=== PATIENT | female | born 1950 | race Two or more races ===

== ENCOUNTER → 2016-10-15 | Outpatient (REF) | payer MEDICARE, OTHER ==
[~2016-10-15] MED LIST: /ESOM40CA PO; /HCTZ25TA PO; B12-1CHW PO; BIOT50004 PO; CALC600T57 PO; CAPT25TA3 PO; FURO40TA2 PO; HYDR25TA6 PO; MULT1TAB9 PO; OMEP20CA3 PO; POTA10CA PO; POTA20TA PO; POTASSIUM CL ER PO; PRAVASTATIN PO; PREMARIN PO; REQUIP XL PO; ROPI4TAB21 PO; SPIR25TA2 PO; TOPA25TA10 PO; TRAM50TA2 PO; ULTR50TA PO
[2016-10-15 13:48] LABS: CALCIUM OXALATE CRYSTALS MODERATE
== END ==
LOC: M SMT 12:53
PROVIDERS: ATTEND Nurse Practitioner Family
DX: N39.0 Urinary tract infection, site not specified (principal)
CPT/HCPCS: 51798; 81001; 87088; 87186; G0463

== ENCOUNTER → 2016-10-22 | Outpatient (CLI) | payer MEDICARE, OTHER ==
--- NOTE | 2016-10-22 10:25 | REP ---
Clinical: Recurrent urinary tract infection. Findings: Lung bases are clear. Visualized heart and pericardium normal. Liver, spleen, pancreas, bilateral adrenal glands and kidneys are normal. Specifically, there is no perinephric stranding, hydroureteronephrosis or nephrolithiasis. The patient is status post cholecystectomy and gastric bypass surgery. The enteric system is without obstruction or acute inflammatory process. Colonic and sigmoid diverticulosis noted without obvious acute diverticulitis. Pelvis demonstrates normal bladder and evidence for prior hysterectomy. Multiple phleboliths noted in the pelvis. No pelvic fluid or ascites. No obvious adenopathy. Atherosclerotic changes of the aorta and vasculature without aneurysm. Skeletal structures demonstrate degenerative changes and evidence for prior laminectomy and posterior fixation at the L1-L4. Impression: 1. Essentially normal appearance to the urinary tract system by noncontrast evaluation. 2. No free fluid and no obvious acute intra-abdominal or pelvic pathology. 3. Chronic changes include prior cholecystectomy, gastric bypass, hysterectomy, lumbar laminectomy and posterior fusion. Signed by Lalito Meeks MD 10/22/2016 10:16 A
== END ==
LOC: M RAD 09:08
PROVIDERS: ATTEND Nurse Practitioner Family
DX: N39.0 Urinary tract infection, site not specified (principal); Z98.84 Bariatric surgery status; Z98.1 Arthrodesis status

== ENCOUNTER → 2017-02-01 | Outpatient (REF) | payer MEDICARE, OTHER ==
[~2017-02-01] MED LIST changes: +TOPA1TAB PO; -TOPA25TA10 PO
== END ==
LOC: M SMT 13:30
PROVIDERS: ATTEND Nurse Practitioner Women's Health
DX: N39.0 Urinary tract infection, site not specified (principal)
CPT/HCPCS: 81001; 87086; G0463

== ENCOUNTER → 2017-05-25 | Outpatient (REF) | payer MEDICARE, OTHER | LOC: M LAB REF 17:01 | PROVIDERS: ATTEND Urology | DX: N39.0 Urinary tract infection, site not specified (principal) | CPT/HCPCS: 81001; 87086; G0463 ==

== ENCOUNTER 2018-07-27 08:13 | Day surgery (SDC) | payer MEDICARE, OTHER ==
[~2018-07-27] VITALS: Ht 162.6 cm; Wt 73.5 kg
[~2018-07-27 08:13] MED LIST changes: +KLOR10TA76 PO; +LIDOCAINE 2% INJ 100 MG/5 ML SDV (FOR ANES.) As Ordered ONE; +LR 1,000 ML IV ONE; +MAGN500C PO; +MIDAZOLAM INJ 2 MG/2 ML VIAL (J2250) As Ordered ONE; -POTA10CA PO; +PROPOFOL 200 MG/20 ML VIAL As Ordered ONE; +SPIR50TA4 PO; +fentaNYL 250 MCG/5 ML INJECTION (J3010) As Ordered ONE
[2018-07-27] MEDS ORDERED: PHENAZOPYRIDINE 100 MG TAB PO ONE (08:45)
[2018-07-27] MEDS ORDERED: VASOPRESSIN INJ 20 UNITS/ML VIAL As Ordered ONE (09:56)
[2018-07-27] MEDS ORDERED: ROCURONIUM BROMIDE 50 MG/5 ML VIAL As Ordered ONE (10:14)
[2018-07-27] MEDS ORDERED: ePHEDrine SULFATE 25 MG/5 ML(5MG/ML) SYRINGE As Ordered ONE (10:33)
[2018-07-27] MEDS ORDERED: dexameTHASONE 4 MG/ML 1ML VIAL (J1100) As Ordered ONE (10:47)
[2018-07-27] MEDS ORDERED: GLYCOPYRROLATE INJ 0.2 MG/ML 2 ML VIAL As Ordered ONE (10:47)
[2018-07-27] MEDS ORDERED: ONDANSETRON 4MG/2ML VIAL (J2405) As Ordered ONE (10:47)
[2018-07-27] MEDS ORDERED: NEOSTIGMINE 10 MG/10 ML VIAL (J2710) As Ordered ONE (10:47)
[2018-07-27] MEDS ORDERED: KETOROLAC 60 MG/2 ML VIAL (J1885) As Ordered ONE (10:47)
[2018-07-27] MEDS ORDERED: METOCLOPRAMIDE INJ 10MG/2ML VIAL (J2765) As Ordered ONE (10:47)
[2018-07-27] MEDS ORDERED: fentaNYL 100 MCG/2 ML INJECTION (J3010) As Ordered ONE (12:37)
[2018-07-27] MEDS ORDERED: MORPHINE 10 MG/ML 1ML VIAL (J2270) As Ordered ONE (13:06)
[2018-07-27] MEDS: MORPHINE 10 MG/ML 1ML VIAL (J2270) IV PRN ×5 (13:10→13:58)
[2018-07-27] MEDS ORDERED: PERCOCET 5MG/325MG TAB As Ordered ONE (13:23)
[2018-07-27] MEDS ORDERED: fentaNYL 100 MCG/2 ML INJECTION (J3010) IV PRN (13:45)
[2018-07-27] MEDS ORDERED: PERCOCET 5MG/325MG TAB PO PRN (13:45)
[2018-07-27] MEDS ORDERED: ONDANSETRON 4MG/2ML VIAL (J2405) IV PRN (13:45)
[2018-07-27] MEDS ORDERED: LR 1,000 ML IV SCH (13:45)
--- NOTE | 2018-07-27 16:26 | RO ---
DATE OF PROCEDURE: 07/27/2018 PREOPERATIVE DIAGNOSES: Symptomatic prolapse including cystocele, rectocele and left paravaginal defect as well as failed conservative methods and stress urinary incontinence with usual hypermobility. POSTOPERATIVE DIAGNOSES: Symptomatic prolapse including cystocele, rectocele and left paravaginal defect as well as failed conservative methods and stress urinary incontinence with usual hypermobility. PROCEDURE: Sacrospinous suspension using Anchorsure anterior and posterior repair with perineorraphy and reconnection of the rectovaginal septum to the perineal body. She also had a left perivaginal defect repair and a Solyx midurethral sling placement with cystourethroscopy. SURGEON: Denia Corcoran MD WINDOWS SECURITY ANALYST: Stacy Sims ANESTHESIA: General endotracheal anesthesia. BRIEF DESCRIPTION OF PROCEDURE AND FINDINGS: Olimpia was brought to the operating room where sufficient anesthesia was induced, and she was prepped, draped, and positioned in the usual sterile fashion. As expected, she had prolapse of the vaginal vault. We were able to put Allis clamps at four separate locations and inject with vasopressin, and then remove a aguilar-shaped portion of vaginal epithelium over these tissues. We did place the tissues using Hyatt clamps up to the sacral spinous ligament to evaluate our placement and there was more redundancy anteriorly than posteriorly, so of course that is how we shaped that aguilar-shaped tissue. We did empty the bladder at the beginning of the case. The patient had taken preoperative Pyridium as is evident by the operative photos. She also had a perivaginal defect which we could not repair with the sacral spinous or the midline anterior and posterior repair that she needed. We did do an anterior cystocele repair after removing that aguilar-shaped portion of tissue. We used #2-0 Vicryl in a pursestring stitch and then [id number] to resupport anteriorly that anterior rectocele. Then, dissecting posteriorly at the apex, we worked towards the right sacral spinous ligament and having dissected it free, we then placed two Anchorsure anchors into the ligament. Each of these carried two #2-0 PDS and these four sutures were then used to make four-point suspension of the vaginal vault for sacral spinous suspension of apex using a Isbell reusable needle to bring those sutures through and through the vaginal epithelium and having brought those sutures through, testing, of course placement repeatedly with Allis clamps to make sure that we had as good a placement as possible and had not over-corrected. We then closed the vaginal vault itself where we had incised at the apex, closing anterior to posterior to foreshorten the vaginal tissues rather than closing [id number] and then being careful as well to avoid pinching or crimping the PDS. We then brought down the PDS, each with one throw, keeping those tight on hemostats and then cystourethroscopy was done. We confirmed that we had actually bulged up anteriorly the cystocele and that we had not kinked or obstructed the ureters. We had normal jets dye colored urine laterally and there was no evidence of suture within the bladder. We then re-emptied the bladder and completed the throws on the PDS and trimmed those off. We still had a left paravaginal defect and in addition we had a posterior defect. The cystocele on the anterior repair as I already described were completed. She did have a urethrocele. We planned on getting that with the midurethral sling. So we went posteriorly and there was a separation of the perineal body and the rectovaginal septum as well as obvious midline and slightly off to the patient's right posterior defect, so we incised an inverted triangle of tissue from the perineal body, dissected the vaginal epithelium free from the rectovaginal septum posteriorly and then working [id number] did leave a later plication and having plicated the rectovaginal septum and levators, we then reconnected the rectovaginal septum to the perineal body and then did a perineorrhaphy as well using #2-0 and #0 Vicryl as is typical. We then removed some more redundant vaginal epithelium and closed the vaginal defect posteriorly and repaired the perineum. We then turned our attention anteriorly. There was still a left perivaginal defect so we made a separate incision for that dissection. Dissected out laterally. We had support and then used #2-0 Vicryl in this plication and then closed the wound there and thus repaired the lateral perivaginal defect as well as the cystocele defect, the apical defect and the rectocele, and separation of the rectovaginal septum and perineal body. Having completed those corrections, we only had the urethrocele to go and we emptied the bladder again, and then injected again with vasopressin anteriorly in the midline, approximately a centimeter cephalad from the ureteral meatus we made an incision about a centimeter and a half long in the anterior vaginal wall, maybe a little longer since we were correcting the urethrocele as well and then we dissected out laterally being very careful to avoid the sulcus, which at this point with the perivaginal defect had been recreated. So we were careful to work around that and I went ahead and placed the left side Solyx arm prior to the right because of working carefully around this repair, but we did get good placement with the Solyx and then cystoscopy confirmed lack of injury to the bladder, lack of mesh in the bladder or the urethra and confirmed continued jets or urine incidentally. We then closed the anterior vaginal wall defects, thus also correcting the cystocele and then placed a vaginal pack. Rectal exam at the end of the case also confirmed lack of rectal injury and good support. The procedure was then ended. ESTIMATED BLOOD LOSS: Maybe 30 mL. FLUIDS REPLACED: Crystalloid. COMPLICATIONS: None. CONDITION AND DISPOSITION: Olimpia tolerated the procedure well and was recovering in the recovery room in good condition.
[2018-07-27 17:15] VITALS: BP 111/55
== END 2018-07-27 18:15 | disposition home or self-care (01) ==
LOC: M SDC 08:13
PROVIDERS: ATTEND Obstetrics & Gynecology
DX: N81.89 Other female genital prolapse (principal); N39.3 Stress incontinence (female) (male); K21.9 Gastro-esophageal reflux disease without esophagitis; G25.81 Restless legs syndrome; G47.00 Insomnia, unspecified; Z88.2 Allergy status to sulfonamides; Z79.899 Other long term (current) drug therapy
CPT/HCPCS: 57260; 57282; 57288; 88302; C1713; C1771; J0690; J1100; J1885; J2250; J2270; J2405; J2710; J2765; J3010

== ENCOUNTER → 2018-08-16 | Outpatient (REF) | payer MEDICARE, OTHER ==
[~2018-08-16] MED LIST changes: -LIDOCAINE 2% INJ 100 MG/5 ML SDV (FOR ANES.) As Ordered ONE; -LR 1,000 ML IV ONE; -MIDAZOLAM INJ 2 MG/2 ML VIAL (J2250) As Ordered ONE; -PROPOFOL 200 MG/20 ML VIAL As Ordered ONE; -fentaNYL 250 MCG/5 ML INJECTION (J3010) As Ordered ONE
[2018-08-16 18:34] LABS: APPEARANCE, URINE TURBID (CLEAR); BACTERIA, URINE AUTO 2+ (NEGATIVE); BILIRUBIN, URINE AUTO NEGATIVE (NEGATIVE); BLOOD, URINE BLOOD 2+ (NEGATIVE); COLOR, URINE AMBER (YELLOW); GLUCOSE, URINE (UA) AUTO NEGATIVE (NEGATIVE); KETONE, URINE AUTO NEGATIVE (NEGATIVE); LEUKOCYTE ESTERASE, URINE AUTO 3+ (NEGATIVE); MUCUS, URINE SMALL (NEGATIVE); NITRITE, URINE AUTO NEGATIVE (NEGATIVE); PROTEIN, URINE AUTO 1+ mg/dL (NEGATIVE); RBC, URINE AUTO 114 /HPF (0-3); SPECIFIC GRAVITY URINE AUTO 1.018 (1.002-1.035); SQUAMOUS EPITHELIAL CELL UR AU 3 /HPF (0-6); UROBILINOGEN, URINE AUTO 0.2 mg/dL (0.0-2.0); WBC, URINE AUTO TNTC /HPF (0-3)
== END ==
LOC: M LAB REF 16:34
PROVIDERS: ATTEND Obstetrics & Gynecology
DX: R39.89 Other symptoms and signs involving the genitourinary system (principal)

== ENCOUNTER → 2018-10-20 | Outpatient (CLI) | payer MEDICARE, OTHER ==
--- NOTE | 2018-10-20 11:37 | REP ---
RIGHT FOOT SERIES: Four views. HISTORY: Pain. FINDINGS: Four views of the right foot demonstrate osteoarthritis at the first MTP and IP joints with spurring and some sclerosis. Overall mineralization pattern is normal. There are plantar and Achilles calcaneal spurs. There is ankle joint osteoarthritis and some midfoot spurring visible on the lateral film. IMPRESSION: Osteoarthritic changes. No acute bony abnormality. Electronically Signed by David Islas MD 10/20/2018 02:33 P
== END ==
LOC: M WUC 10:19
PROVIDERS: ATTEND Physician Assistant
DX: M19.071 Primary osteoarthritis, right ankle and foot (principal)

== ENCOUNTER 2019-06-28 11:31 | Day surgery (SDC) | payer MEDICARE, OTHER ==
[~2019-06-28] VITALS: Ht 162.6 cm; Wt 74.6 kg
[~2019-06-28 11:31] MED LIST changes: -/ESOM40CA PO; -/HCTZ25TA PO; +HYDR-3644 PO; +LIDOCAINE 1% MDV 20ML VIAL SQ PRN; +LR 1,000 ML IV ONE; +MIDAZOLAM INJ 2 MG/2 ML VIAL (J2250) As Ordered ONE; +NEXI1CAP3 PO; +OMEP-172 PO; -OMEP20CA3 PO; +ONDANSETRON 4MG/2ML VIAL (J2405) As Ordered ONE; +PHENAZOPYRIDINE 100 MG TAB PO ONE; +POTA1TAB14 PO; +PROPOFOL 200 MG/20 ML VIAL As Ordered ONE; +ROCURONIUM BROMIDE 50 MG/5 ML VIAL As Ordered ONE; +SM M250T PO; +[UNRECOGNIZED DRUG - CODE] TD; +ceFAZolin SOD 2 GM in IV 1 EA IV ONE; +dexameTHASONE 4 MG/ML 1ML VIAL (J1100) As Ordered ONE; +fentaNYL 100 MCG/2 ML INJECTION (J3010) As Ordered ONE
[2019-06-28] MEDS ORDERED: SCOPOLAMINE 1MG TRANSDERMAL PATCH As Ordered ONE (12:17)
[2019-06-28] MEDS ORDERED: FURO40TA2 PO (12:22)
[2019-06-28] MEDS ORDERED: SCOPOLAMINE 1MG TRANSDERMAL PATCH TOP ONE (12:30)
[2019-06-28] MEDS ORDERED: VASOPRESSIN INJ 20 UNITS/ML VIAL As Ordered ONE (12:45)
[2019-06-28] MEDS ORDERED: LIDOCAINE 2% INJ 100 MG/5 ML SDV (FOR ANES.) As Ordered ONE (13:11)
[2019-06-28] MEDS ORDERED: LACRILUBE (AKWA TEARS) OPHTH OINT 3.5 GM As Ordered ONE (13:17)
[2019-06-28] MEDS ORDERED: fentaNYL 100 MCG/2 ML INJECTION (J3010) As Ordered ONE ×3 (14:04→17:48)
[2019-06-28] MEDS ORDERED: ROCURONIUM BROMIDE 50 MG/5 ML VIAL As Ordered ONE ×2 (14:34→16:53)
[2019-06-28] MEDS ORDERED: ePHEDrine SULFATE 25 MG/5 ML(5MG/ML) SYRINGE As Ordered ONE (14:45)
[2019-06-28] MEDS ORDERED: ACETAMINOPHEN 1000MG 100ML IV BTL (OFIRMEV) (J0131 PER 10MG) As Ordered ONE (16:06)
[2019-06-28] MEDS ORDERED: SUGAMMADEX SODIUM 500 MG/5 ML VIAL (BRIDION) As Ordered ONE (17:13)
[2019-06-28] MEDS ORDERED: oxyCODONE 5MG TAB As Ordered ONE (17:59)
[2019-06-28] MEDS ORDERED: LR 1,000 ML IV SCH (18:15)
[2019-06-28] MEDS ORDERED: oxyCODONE 5MG TAB PO PRN (18:15)
[2019-06-28] MEDS ORDERED: METOCLOPRAMIDE INJ 10MG/2ML VIAL (J2765) IV PRN (18:15)
[2019-06-28] MEDS ORDERED: ONDANSETRON 4MG/2ML VIAL (J2405) IV PRN (18:15)
[2019-06-28] MEDS ORDERED: NORCO, ANEXSIA 5/325MG TABLET (HYDROcodone/ACETAMINOPHEN) PO PRN (18:15)
[2019-06-28] MEDS ORDERED: fentaNYL 100 MCG/2 ML INJECTION (J3010) IV PRN (18:15)
[2019-06-28] MEDS ORDERED: MEPERIDINE INJ 25 MG/ML VIAL (J2175) IV PRN (18:15)
[2019-06-28] MEDS ORDERED: rOPINIRole 2MG TAB PO SCH (21:00)
[2019-06-28 23:00] VITALS: BP 103/53
[2019-06-28 23:30] VITALS: BP 104/59
[2019-06-29] VITALS: BP 106/53
[2019-06-29 01:00] VITALS: BP 101/57
[2019-06-29 02:00] VITALS: BP 103/52
[2019-06-29 03:00] VITALS: BP 105/54
[2019-06-29 06:00] VITALS: BP 102/47
--- NOTE | 2019-06-29 07:43 | RO ---
DATE OF PROCEDURE: 06/28/2019 PREPROCEDURE DIAGNOSIS: Symptomatic prolapse. Failed picayune tissue repair. POSTPROCEDURE DIAGNOSIS: Symptomatic prolapse. Failed picayune tissue repair. PROCEDURE: Robotic sacral colpopexy and cystourethroscopy. SURGEON: Dr. Denia Corcoran. HOUSEPERSON: ABBY Reza ANESTHESIA: General endotracheal anesthesia. DESCRIPTION OF PROCEDURE: Olimpia was brought to the operating room where sufficient general endotracheal anesthesia was induced and she was prepped, draped and positioned in the usual sterile fashion with a Guallpa with the ability to backfill placed and attention turned to the abdomen where a transverse semilunar incision was made over the line of one of her previous scars (patient has multiple previous surgeries). Sharp and blunt dissection continued through the subcutaneous tissues to the level of the rectus fascia which was transversely incised, secured with a Vicryl retention suture. The peritoneum entered bluntly under direct visualization in an open laparoscopic technique and the Su cannula placed. CO2 insufflation was then begun. After adequate CO2 insufflation, the peritoneal cavity was visualized. There were normal shiny peritoneal surfaces throughout with no excrescence, ascites or exudate. There were adhesions as would be expected with the patient's previous surgical history. Some of these were taken down especially freeing up the sigmoid and bowel as much as possible. The patient also had impressively large vessels at the bifurcation but very evidence ureters. Despite a history of having gastric bypass, we were able to get access to the pelvis as documented in the photographic record. We were able to identify the sacral promontory and we just passed that so that we would not be on the disc space itself. We were able to elevate the peritoneum a tiny bit to the right of midline and then dissect through the presacral fat pad there to the sacral promontory. Then we tunneled the peritoneum down towards the pelvis coming out close to our expected are of dissection there. We were able place a Breisky into the vagina and then an EA sizer into the rectum. Posteriorly we were able to dissect all the way down between these so that we were as low as we wanted to go and as close to the rectum as we wanted to go. Anteriorly, we dissected down to what appeared to be were the bubble of the bladder was and then we used the Restorelle Y mesh with about 8 cm posteriorly and about 7 anteriorly peripherally sutured with GORE-RONALDO. But when we scoped her after placing the sutures and holding the tissue in position, we could see that there was a stitch that went through the bladder. So the anterior stitches were all taken out and the bladder dissection done again. We manipulated and backfilled the bladder multiple times. There was quite a bit of scarring there and given that the patient had a previous hysterectomy separate support procedures, etc., not surprising. Behind the bulb itself, there is a weak spot just at the bladder neck but it is so thin there between the vagina, I made a conscious decision not to incise down there once we had already gotten that close to the bladder and gotten into that fold. So what we did is after re-dissection and then placing the anterior, we re-stuck the anterior wall of the tissues because of course, then we had a longer reach there with that length of mesh and we did not want to have tension at the apex of the cuff. So we used the #2-0 GORE-RONALDO suture and took a couple of passes through the perivaginal tissues to sort of reef up these tissues to line them up in length with the mesh piece so that there would not be undue pressure at the vaginal cuff itself. We then pulled the mesh through the tunnel which I already created. We double-checked of course with the cysto and confirmed there was no longer any injury there or difficulty, no longer any suture in the vagina, etc., At this point, we had good support and we went ahead and, holding the mesh where we had positioned it for those tests, we placed two #2-0 GORE-RONALDO sutures in the longitudinal ligament just beyond the sacral promontory. I used a 30 degree down so I had good visualization and could avoid the vessels there and sewed those down first with flip knots to get good approximation and then multiple throws after that. Then we used #3-0 Vicryl to close the peritoneum over the spaces that had opened, first at the sacral promontory and then of course, in the pelvis. We took pictures after the closure covering up the mesh as well. Then the procedure was then ended with CO2 allowed to escape the abdomen. The instruments removed. The umbilical wound closed with the 0 Vicryl retention sutures at the fascial layer. Then all of the wounds closed at the skin layer with #3-0 Vicryl in subcuticular stitch. A dry sterile dressings then applied. ESTIMATED BLOOD LOSS: About 25 mL. FLUID REPLACEMENT: Crystalloid. COMPLICATIONS: None. CONDITION AND DISPOSITION: Olimpia tolerated the procedure well and was recovery in the recovery room in good condition.
[2019-06-29] MEDS ORDERED: OMEP10CASR PO (09:11)
[2019-06-29] MEDS ORDERED: POTA10CA32 PO (09:11)
[2019-06-29] MEDS ORDERED: ZOLP5TAB PO (09:11)
[2019-06-29] MEDS ORDERED: CLOB0.0548 TOP (09:11)
== END 2019-06-29 09:55 | disposition home or self-care (01) ==
LOC: M SDC 11:31 → M MS5PR 22:27 → M SDC 06-29 09:55
PROVIDERS: ATTEND Obstetrics & Gynecology
DX: N81.4 Uterovaginal prolapse, unspecified (principal); T86.891 Other transplanted tissue failure; Y76.2 Prosthetic and other implants, materials and accessory obstetric and gynecological devices associated with adverse incidents; N99.71 Accidental puncture and laceration of a genitourinary system organ or structure during a genitourinary system procedure; N18.2 Chronic kidney disease, stage 2 (mild); K21.9 Gastro-esophageal reflux disease without esophagitis; R60.0 Localized edema; L90.0 Lichen sclerosus et atrophicus; M54.9 Dorsalgia, unspecified; G47.419 Narcolepsy without cataplexy; G43.909 Migraine, unspecified, not intractable, without status migrainosus; G47.30 Sleep apnea, unspecified; R32 Unspecified urinary incontinence; R33.9 Retention of urine, unspecified; M19.90 Unspecified osteoarthritis, unspecified site; G25.81 Restless legs syndrome; G47.00 Insomnia, unspecified; Z87.440 Personal history of urinary (tract) infections; Z98.84 Bariatric surgery status; Z79.899 Other long term (current) drug therapy; Z88.1 Allergy status to other antibiotic agents; Z88.5 Allergy status to narcotic agent; Z88.2 Allergy status to sulfonamides; Z91.010 Allergy to peanuts
CPT/HCPCS: 57425; C1781; J0131; J0690; J1100; J2250; J2405; J3010

== ENCOUNTER 2019-09-21 09:15 | Outpatient (RCR) | payer MEDICARE, OTHER ==
[~2019-09-21 09:15] MED LIST changes: +CLOB0.0548 TOP; -LIDOCAINE 1% MDV 20ML VIAL SQ PRN; -LR 1,000 ML IV ONE; -MIDAZOLAM INJ 2 MG/2 ML VIAL (J2250) As Ordered ONE; -OMEP-172 PO; +OMEP10CASR PO; +OMEP1CAP73 PO; -ONDANSETRON 4MG/2ML VIAL (J2405) As Ordered ONE; -PHENAZOPYRIDINE 100 MG TAB PO ONE; +POTA10CA32 PO; -PROPOFOL 200 MG/20 ML VIAL As Ordered ONE; -ROCURONIUM BROMIDE 50 MG/5 ML VIAL As Ordered ONE; +ZOLP5TAB PO; -ceFAZolin SOD 2 GM in IV 1 EA IV ONE; -dexameTHASONE 4 MG/ML 1ML VIAL (J1100) As Ordered ONE; -fentaNYL 100 MCG/2 ML INJECTION (J3010) As Ordered ONE
== END 2019-09-22 ==
LOC: M PT 09:15
PROVIDERS: ATTEND Internal Medicine Nephrology
DX: I89.0 Lymphedema, not elsewhere classified (principal)

== ENCOUNTER 2020-03-13 08:37 | Day surgery (SDC) | payer MEDICARE, OTHER ==
[~2020-03-13] VITALS: Ht 165.1 cm; Wt 73.5 kg
[~2020-03-13 08:37] MED LIST changes: +BIOT5TAB3 PO; +CAPS0.022 TOP; +CAPS42.54 EX; +CYCL5TAB PO; +GNP250TA9 PO; +HYDR12.55 PO; +MACR100C43 PO
[2020-03-13] MEDS ORDERED: dexameTHASONE 4 MG/ML 1ML VIAL (J1100 PER 1MG) As Ordered ONE (09:09)
[2020-03-13] MEDS ORDERED: KETOROLAC 60MG 2ML VIAL As Ordered ONE (09:09)
[2020-03-13] MEDS ORDERED: SUGAMMADEX SODIUM 500 MG/5 ML VIAL (BRIDION) As Ordered ONE ×2 (09:09→12:36)
[2020-03-13] MEDS ORDERED: ROCURONIUM BROMIDE 50 MG/5 ML VIAL As Ordered ONE ×2 (09:09→11:37)
[2020-03-13] MEDS ORDERED: propofoL 200 MG/20 ML VIAL As Ordered ONE (09:09)
[2020-03-13] MEDS ORDERED: ACETAMINOPHEN 1000MG 100ML IV BTL (OFIRMEV) (J0131 PER 10MG) As Ordered ONE (09:09)
[2020-03-13] MEDS ORDERED: ONDANSETRON 4MG/2ML VIAL As Ordered ONE (09:09)
[2020-03-13] MEDS ORDERED: LIDOCAINE 2% 100MG/5ML SDV (FOR ANES.) As Ordered ONE (09:09)
[2020-03-13] MEDS ORDERED: fentaNYL 100 MCG/2 ML INJECTION (J3010) As Ordered ONE ×2 (09:10→11:23)
[2020-03-13] MEDS ORDERED: MIDAZOLAM INJ 2MG/2ML VIAL (J2250 PER 1MG) As Ordered ONE (09:10)
[2020-03-13] MEDS ORDERED: ceFAZolin 2 GM/D5W 50 ML IV BAG (J0690 PER 500MG) As Ordered ONE (09:11)
[2020-03-13] MEDS ORDERED: PHENAZOPYRIDINE 100 MG TAB PO ONE (09:30)
[2020-03-13] MEDS ORDERED: LR 1,000 ML IV SCH ×2 (09:30→13:30)
[2020-03-13] MEDS ORDERED: ceFAZolin SOD 2 GM in IV 1 EA IV ONE (09:30)
[2020-03-13] MEDS ORDERED: VASOPRESSIN INJ 20 UNITS/ML VIAL As Ordered ONE (09:50)
[2020-03-13] MEDS ORDERED: KETOROLAC 30 MG/ML 1ML VIAL As Ordered ONE (13:17)
[2020-03-13] MEDS ORDERED: oxyCODONE 5MG TAB PO PRN (13:30)
[2020-03-13] MEDS ORDERED: fentaNYL 100 MCG/2 ML INJECTION (J3010) IV PRN (13:30)
[2020-03-13] MEDS ORDERED: ONDANSETRON 4MG/2ML VIAL IV PRN (13:30)
[2020-03-13] MEDS ORDERED: KETOROLAC 30 MG/ML 1ML VIAL IV PRN (13:30)
[2020-03-13] MEDS ORDERED: NORCO, ANEXSIA 5/325MG TABLET (HYDROcodone/ACETAMINOPHEN) PO PRN (13:45)
[2020-03-13 16:21] LABS: HEMATOCRIT 32.8 % (36.0-47.0); HEMOGLOBIN 10.7 g/dl (12.0-15.5)
[2020-03-13 18:20] VITALS: BP 124/59
--- NOTE | 2020-04-15 09:15 | ECGEPIP ---
[facility] Test Date: 2020-03-13 Pat Name: SEVERIANO CANO Department: Room: - Gender: Female School Adjustment Counselor: LUKE : 1950 Requested By: Denia Gil Order Number: [id number] Reading MD: Bob Henrik Measurements Intervals Fred Rate: 49 P: 55 NJ: 196 QRS: 1 QRSD: 108 T: 53 QT: 430 QTc: 389 Interpretive Statements SINUS BRADYCARDIA WITH BORDERLINE 1ST DEGREE AV BLOCK INCOMPLETE RIGHT BUNDLE BRANCH BLOCK BORDERLINE ECG NO PRIOR TRACING SEE SCANNED DOWNTIME REPORT
--- NOTE | 2020-05-01 11:12 | RO ---
DATE OF OPERATION: 03/13/2020 PREOPERATIVE DIAGNOSIS AND INDICATION FOR SURGERY: Symptomatic prolapse. This is a patient who had a previous sacrospinous suspension that held briefly but failed in a fairly short interval. She subsequently underwent sacrocolpopexy with disruption early in her postoperative course and continued symptomatic with a large cystocele both midline and lateral and returned today for support surgery. PROCEDURE: Anterior-posterior repair, perineorrhaphy, sacrospinous suspension and cystourethroscopy. SURGEON: Denia Corcoran M.D. ARC AND GAS WELDER: None. ANESTHESIA: General endotracheal anesthesia. SPECIMENS: Only redundant vagina. REPLACED: Crystalloid. BRIEF DESCRIPTION OF PROCEDURE AND FINDINGS: Olimpia was brought to the operating room where sufficient general endotracheal anesthesia was induced. She was prepped and draped and positioned in the usual sterile fashion. At the apex posteriorly, you can still feel the patients previous Anchorsures and they are not holding snuggly anteriorly but there was some offer to support especially along the patients right side. The left side is not as well supported and she had a left lateral and anterior cystocele which were large and protuberant and disrupted the genital hiatus. The bladder was emptied and then vasopressin was injected anteriorly so that we could do a wide anterior dissection. We continued dissection up to an area where you would typically do a Carly plication anteriorly at the urethrovesical junction and I did some 2-0 [id number]-[id number] reduction anteriorly both with purse-strings and [id number]-go-[id number] stitches in order to reduce the cystocele from the field of dissection and improve access and also improve access to the lateral support tissues so that we could resupport those tissues and facilitate the dissection with better visualization. When we had reduced much of this, we were then able to reach the apex of the previous site of repair. I did not run into mesh at any point during this case. I did dissect to the sacrospinous ligament on the right side. We could feel the other two anchors but because I used two sutures in each anchor, there were only two anchors placed and so I was with some considerable effort able to place two more anchors. I did consider using only one but I really felt that she had enough need for support that I felt she needed a four point suspension. Even though most of this work was anterior, I did not want her to have a failure of support again and with patience, we were able to get good placement for two more anchors each with those held to #2-0 Maxon sutures and we were able to use further stitches with 0 Vicryl to purse-string the apex and to bring down that defect and plicate those tissues. Then we used the Isbell with untangled Maxon suture and brought it out full thickness through the paravesical tissues posterior to the apex of the paravaginal tissues and some of the paravesical tissues and out through the vaginal epithelium. Again, I had four points of support for this and was careful to come out on the patients left side where she still had that lateral defect that we could support those tissues. We also used Allises to support the tissues where we were coming so that we knew what support we would get with these and that we were not trying to over correct. Having brought out those sutures, we then did some further layering anteriorly to resupport the anterior defect, bring that in together and then tied down the sacrospinous support sutures and then scoped the patient. We were able to confirm that we had really reduced that cystocele and there no sutures in the bladder and she had normal jets of urine as readily visible with this patient who had taken pyridium preop. With confirmation of lack of bladder injury and good support to the bladder, we then finished off the rest of the throws of the Maxon sutures, sacrospinous support sutures and then trimmed the vaginal edge, closed that anterior and apical dissection in the epithelial layer with 3-0 Vicryl. Then we still a defect from left lateral extending posterior. I felt that there was a defect of the rectovaginal septum there and so we made a decision that we definitely needed a posterior repair as well. An inverted triangle of tissue was removed from the perineum, dissected along the previous line of dissection posteriorly and easing slightly towards the patients left side. I then actually did cephalad to caudad deep support of this tissue to plicate the rectovaginal septum there which I think offered better angle of support and connection of the tissues and having corrected that vertical defect or rather it is a horizontal defect but caused a lack of vertical support, having corrected that, we had much better support in the tissues. We then removed the redundant vaginal tissue and closed the vaginal tissue over this defect. We of course resupported a little bit in the midline as well but most of the support that was needed was lateral and came down and made sure to reconnect rectovaginal septum to perineal body and to resupport perineal body. We used 0 Vicryl at the perineal body and then 2-0 in the skin and any other connections. Having done all this, we had good support. We had a remaining urethrovesical angle that was appropriate and not absent nor exaggerated as it had been preoperatively. We had not disrupted a sling or mesh support nor run into that and we had good reduction of all the palpable defects we had had and of course, rectal exam confirmed lack of injury to the bowel so the procedure was then ended. ESTIMATED BLOOD LOSS: For the procedure, about 50 mL. FLUID REPLACEMENT: Crystalloid. COMPLICATIONS: None. DRAINS: I did place a Guallpa temporarily postop just to keep the bladder down off those supports but the plan will be to remove that before she leaves. CONDITION/DISPOSITION: Olimpia tolerated the procedure well and was recovering in the recovery room I good condition. CARLOS
== END 2020-03-13 18:25 | disposition home or self-care (01) ==
LOC: M SDC 08:37
PROVIDERS: ATTEND Obstetrics & Gynecology
DX: N81.9 Female genital prolapse, unspecified (principal); K21.9 Gastro-esophageal reflux disease without esophagitis; E78.5 Hyperlipidemia, unspecified; Z98.84 Bariatric surgery status; G47.30 Sleep apnea, unspecified; Z88.2 Allergy status to sulfonamides; Z88.5 Allergy status to narcotic agent; Z91.010 Allergy to peanuts; Z88.8 Allergy status to other drugs, medicaments and biological substances
CPT/HCPCS: 36415; 57260; 57282; 85014; 85018; 88302; 93005; C1713; J0131; J0690; J1100; J1885; J2250; J2405; J3010

== ENCOUNTER → 2020-03-26 | Outpatient (REF) | payer MEDICARE, OTHER ==
[2020-03-26 18:16] LABS: APPEARANCE, URINE HAZY (CLEAR); BACTERIA, URINE AUTO NEGATIVE (NEGATIVE); BILIRUBIN, URINE AUTO NEGATIVE (NEGATIVE); BLOOD, URINE BLOOD 2+ (NEGATIVE); COLOR, URINE STRAW (YELLOW); GLUCOSE, URINE (UA) AUTO NEGATIVE (NEGATIVE); KETONE, URINE AUTO NEGATIVE (NEGATIVE); LEUKOCYTE ESTERASE, URINE AUTO 3+ (NEGATIVE); NITRITE, URINE AUTO NEGATIVE (NEGATIVE); PROTEIN, URINE AUTO NEGATIVE (NEGATIVE); RBC, URINE AUTO 15 /HPF (0-3); SPECIFIC GRAVITY URINE AUTO 1.006 (1.002-1.035); SQUAMOUS EPITHELIAL CELL UR AU 0 /HPF (0-6); UROBILINOGEN, URINE AUTO 0.2 mg/dL (0.0-2.0); WBC, URINE AUTO 101 /HPF (0-3)
== END ==
LOC: M LAB REF 17:32
PROVIDERS: ATTEND Obstetrics & Gynecology
DX: R31.9 Hematuria, unspecified (principal); N39.0 Urinary tract infection, site not specified

== ENCOUNTER → 2020-04-29 | Outpatient (REF) | payer MEDICARE, OTHER ==
[2020-04-29 16:23] LABS: APPEARANCE, URINE CLEAR (CLEAR); BACTERIA, URINE AUTO 1+ (NEGATIVE); BILIRUBIN, URINE AUTO NEGATIVE (NEGATIVE); BLOOD, URINE BLOOD NEGATIVE (NEGATIVE); COLOR, URINE COLORLESS (YELLOW); GLUCOSE, URINE (UA) AUTO NEGATIVE (NEGATIVE); KETONE, URINE AUTO NEGATIVE (NEGATIVE); LEUKOCYTE ESTERASE, URINE AUTO TRACE (NEGATIVE); NITRITE, URINE AUTO NEGATIVE (NEGATIVE); PROTEIN, URINE AUTO NEGATIVE (NEGATIVE); RBC, URINE AUTO 0 /HPF (0-3); SPECIFIC GRAVITY URINE AUTO 1.004 (1.002-1.035); SQUAMOUS EPITHELIAL CELL UR AU 0 /HPF (0-6); UROBILINOGEN, URINE AUTO 0.2 mg/dL (0.0-2.0); WBC, URINE AUTO 1 /HPF (0-3)
== END ==
LOC: M LAB REF 16:04
PROVIDERS: ATTEND Obstetrics & Gynecology
DX: N81.11 Cystocele, midline (principal); N73.8 Other specified female pelvic inflammatory diseases

== ENCOUNTER → 2021-03-06 | Outpatient (REF) | payer MEDICARE, OTHER | LOC: M LAB REF 17:04 | PROVIDERS: ATTEND Internal Medicine Nephrology | DX: E83.42 Hypomagnesemia (principal) ==

== ENCOUNTER → 2021-03-18 | Outpatient (CLI) | payer MEDICARE, OTHER ==
--- NOTE | 2021-03-18 16:26 | REP ---
INDICATION: CONTUSION OF RIGHT KNEE, INITIAL ENCOUNTER COMPARISON: None TECHNIQUE: Four views. No sunrise view. FINDINGS: There is been a total knee prosthesis placed the femoral and tibial components of which appear well seated and well approximated. The alignment is near anatomical. There is no evidence of abnormal periprosthetic lucency. IMPRESSION: Status post TKR within normal limits. <Electronically signed by Stanley Walker > 03/18/21 [id number]
--- NOTE | 2021-03-18 16:27 | REP ---
INDICATION: CONTUSION OF RIGHT KNEE, INITIAL ENCOUNTER. COMPARISON: None. TECHNIQUE: AP and lateral views FINDINGS: No acute fracture or destructive osseous lesion. IMPRESSION: No acute abnormality. Please see the knee report. <Electronically signed by Stanley Walker > 03/18/21 [id number]
== END ==
LOC: M RAD 15:57
PROVIDERS: ATTEND Physician Assistant
DX: S80.01XA Contusion of right knee, initial encounter (principal); Z96.651 Presence of right artificial knee joint; X58.XXXA Exposure to other specified factors, initial encounter; Y92.9 Unspecified place or not applicable; Y93.9 Activity, unspecified; Y99.9 Unspecified external cause status

== ENCOUNTER → 2021-04-09 | Outpatient (REF) | payer MEDICARE, OTHER ==
[~2021-04-09] MED LIST changes: -KLOR10TA76 PO; +POTA-136 PO
[2021-04-09 13:47] LABS: APPEARANCE, URINE CLOUDY (CLEAR); BACTERIA, URINE AUTO 1+ (NEGATIVE); BILIRUBIN, URINE AUTO NEGATIVE (NEGATIVE); BLOOD, URINE BLOOD NEGATIVE (NEGATIVE); COLOR, URINE YELLOW (YELLOW); GLUCOSE, URINE (UA) AUTO NEGATIVE (NEGATIVE); KETONE, URINE AUTO TRACE mg/dL (NEGATIVE); LEUKOCYTE ESTERASE, URINE AUTO 3+ (NEGATIVE); MUCUS, URINE SMALL (NEGATIVE); NITRITE, URINE AUTO POSITIVE (NEGATIVE); PROTEIN, URINE AUTO NEGATIVE (NEGATIVE); RBC, URINE AUTO 6 /HPF (0-3); SPECIFIC GRAVITY URINE AUTO 1.021 (1.002-1.035); SQUAMOUS EPITHELIAL CELL UR AU 2 /HPF (0-6); UROBILINOGEN, URINE AUTO 0.2 mg/dL (0.0-2.0); WBC, URINE AUTO 78 /HPF (0-3)
== END ==
LOC: M SMT 12:50
PROVIDERS: ATTEND Urology
DX: N30.00 Acute cystitis without hematuria (principal)

== ENCOUNTER → 2021-05-15 | Outpatient (REF) | payer MEDICARE, OTHER ==
[2021-05-15 14:02] LABS: APPEARANCE, URINE CLEAR (CLEAR); BACTERIA, URINE AUTO NEGATIVE (NEGATIVE); BILIRUBIN, URINE AUTO NEGATIVE (NEGATIVE); BLOOD, URINE BLOOD NEGATIVE (NEGATIVE); COLOR, URINE COLORLESS (YELLOW); GLUCOSE, URINE (UA) AUTO NEGATIVE (NEGATIVE); KETONE, URINE AUTO NEGATIVE (NEGATIVE); LEUKOCYTE ESTERASE, URINE AUTO NEGATIVE (NEGATIVE); NITRITE, URINE AUTO NEGATIVE (NEGATIVE); PROTEIN, URINE AUTO NEGATIVE (NEGATIVE); RBC, URINE AUTO 0 /HPF (0-3); SPECIFIC GRAVITY URINE AUTO 1.004 (1.002-1.035); SQUAMOUS EPITHELIAL CELL UR AU 0 /HPF (0-6); UROBILINOGEN, URINE AUTO 0.2 mg/dL (0.0-2.0); WBC, URINE AUTO 0 /HPF (0-3)
== END ==
LOC: M SMT 13:21
PROVIDERS: ATTEND Urology
DX: N39.0 Urinary tract infection, site not specified (principal)

== ENCOUNTER → 2022-04-16 | Outpatient (CLI) | payer MEDICARE, OTHER | LOC: M WUC 15:31 | PROVIDERS: ATTEND Internal Medicine | DX: M25.40 Effusion, unspecified joint (principal); M19.031 Primary osteoarthritis, right wrist; M19.032 Primary osteoarthritis, left wrist ==

== ENCOUNTER → 2022-04-16 | Outpatient (REF) | payer MEDICARE, OTHER ==
[2022-04-16 17:43] LABS: BASO % 0.4 % (0.0-1.0); EOS # 0.1 10^3/uL (0.0-0.5); EOS % 2.7 % (0.0-3.0); HEMATOCRIT 41.4 % (36.0-47.0); LYMPH # 1.4 10^3/uL (1.5-5.0); LYMPH % 27.3 % (24.0-44.0); MEAN CORPUSCULAR HEMOGLOBIN 26.9 pg (27.0-33.0); MEAN CORPUSCULAR HGB CONC 31.4 g/dl (32.0-36.5); MEAN CORPUSCULAR VOLUME 85.5 fl (80.0-96.0); MONO # 0.5 10^3/uL (0.0-0.8); MONO % 8.8 % (2.0-8.0); NEUTROPHILS # 3.2 10^3/uL (1.5-8.5); NEUTROPHILS % 60.6 % (36.0-66.0); PLATELET COUNT, AUTOMATED 249 10^3/uL (150-450); RED BLOOD COUNT 4.84 10^6/uL (4.00-5.40); WHITE BLOOD COUNT 5.2 10^3/uL (4.0-10.0)
[2022-04-16 18:20] LABS: CREATININE,RANDOM URINE 14.5 MG/DL; TOTAL PROTEIN,RANDOM URINE < 5.0 MG/DL (0.0-12.0)
[2022-04-16 18:21] LABS: ERYTHROCYTE SEDIMENTATION RATE 18 mm/hr (0-30)
[2022-04-16 18:38] LABS: C REACTIVE PROTEIN QUANTITATIV < 0.30 MG/DL (0.00-0.30); COMPLEMENT C3 155 MG/DL (90-180); COMPLEMENT C4 36 MG/DL (10-40)
[2022-04-16 19:06] LABS: HEPATITIS B SURFACE ANTIBODY NEGATIVE (POSITIVE)
[2022-04-16 19:46] LABS: HEPATITIS C VIRUS ABY INDEX < 0.0 INDEX (<0.8)
[2022-04-16 20:46] LABS: APPEARANCE, URINE MANUAL CLEAR (CLEAR); COLOR, URINE MANUAL COLORLESS (YELLOW)
[2022-04-16 20:47] LABS: BILIRUBIN, URINE MANUAL NEGATIVE (NEGATIVE); BLOOD URINE MANUAL NEGATIVE (NEGATIVE); GLUCOSE, URINE (UA) MANUAL NEGATIVE (NEGATIVE); KETONE, URINE MANUAL NEGATIVE (NEGATIVE); LEUKOCYTE ESTERASE, URINE MAN NEGATIVE (NEGATIVE); NITRITE, URINE MANUAL NEGATIVE (NEGATIVE); PROTEIN, URINE MANUAL NEGATIVE (NEGATIVE); UROBILINOGEN, URINE MANUAL NORMAL (NORMAL)
[2022-04-17 04:57] LABS: HEPATITIS B SURFACE ANTIGEN NEGATIVE (NEGATIVE)
[2022-04-17 10:14] LABS: DRVV SCREEN 37.7 SEC
[2022-04-19 14:08] LABS: COMPLEMENT TOTAL (CH50) > 60 U/mL (>41); HEPATITIS B CORE ANTIBODY IGG Negative (Negative)
== END ==
LOC: M SFHCRHEU 14:25
PROVIDERS: ATTEND Internal Medicine
DX: R76.8 Other specified abnormal immunological findings in serum (principal); M25.40 Effusion, unspecified joint; Z11.59 Encounter for screening for other viral diseases

== ENCOUNTER → 2022-05-31 | Outpatient (REF) | payer MEDICARE, OTHER ==
[2022-05-31 19:45] LABS: THYROID STIMULATING HORMONE 2.31 uIU/ML (0.358-3.740)
[2022-06-02 02:55] LABS: FREE T3 2.8 PG/ML (2.2-4.0)
== END ==
LOC: M SFHCRHEU 11:35
PROVIDERS: ATTEND Internal Medicine
DX: R76.0 Raised antibody titer (principal); E07.9 Disorder of thyroid, unspecified

== ENCOUNTER → 2022-06-04 | Outpatient (REF) | payer MEDICARE, OTHER ==
[2022-06-04 14:17] LABS: APPEARANCE, URINE MANUAL CLEAR (CLEAR); COLOR, URINE MANUAL YELLOW (YELLOW)
[2022-06-04 14:18] LABS: BILIRUBIN, URINE MANUAL NEGATIVE (NEGATIVE); BLOOD URINE MANUAL NEGATIVE (NEGATIVE); GLUCOSE, URINE (UA) MANUAL NEGATIVE (NEGATIVE); KETONE, URINE MANUAL NEGATIVE (NEGATIVE); LEUKOCYTE ESTERASE, URINE MAN POSITIVE (NEGATIVE); NITRITE, URINE MANUAL NEGATIVE (NEGATIVE); PROTEIN, URINE MANUAL NEGATIVE (NEGATIVE); SPECIFIC GRAVITY,URINE MANUAL 1.015 (1.002-1.035); UROBILINOGEN, URINE MANUAL NORMAL (NORMAL)
[2022-06-04 14:25] LABS: BACTERIA, URINE SMALL AMOUNT; HYALINE CAST, URINE NONE SEEN /lpf (0-1); RBC, URINE NONE SEEN /hpf (0-3); SQUAMOUS EPITHELIAL CELL URINE SMALL AMOUNT /hpf (SMALL AMT)
[2022-06-04 14:26] LABS: AMORPHOUS SEDIMENT, URINE SMALL AMOUNT (NEGATIVE); MUCUS, URINE SMALL AMOUNT (NEGATIVE)
== END ==
LOC: M SMT 12:58
PROVIDERS: ATTEND Urology
DX: R30.0 Dysuria (principal)

== ENCOUNTER → 2022-12-13 | Outpatient (REF) | payer MEDICARE, OTHER ==
[~2022-12-13] MED LIST changes: +POTA-298 PO; -POTA10CA32 PO; +POTA10CA33 PO; -POTA1TAB14 PO
[2022-12-14 19:03] LABS: FREE T4 0.91 NG/DL (0.89-1.76); THYROID STIMULATING HORMONE 1.751 uIU/ML (0.55-4.78)
== END ==
LOC: M LAB REF 17:10
PROVIDERS: ATTEND Internal Medicine Nephrology
DX: R80.9 Proteinuria, unspecified (principal); E03.9 Hypothyroidism, unspecified

== ENCOUNTER 2023-06-03 07:35 | Day surgery (SDC) | payer MEDICARE, OTHER ==
[~2023-06-03] VITALS: Ht 162.6 cm; Wt 87.7 kg
[~2023-06-03 07:35] MED LIST changes: -BIOT50004 PO; +BIOT5CAP8 PO; +BUME1TAB3 PO; +GENTAMICIN SULF 80MG/2ML VIAL As Ordered ONE; +LIDOCAINE 2% MDV 20ML VIAL As Ordered ONE; -POTA10CA33 PO; +POTA10CA60 PO; +PREG100CA PO; +SLOW160T12 PO; +ceFAZolin SOD 2 GM in IV 1 EA IV ONE
[2023-06-03] MEDS ORDERED: LR 1,000 ML IV SCH (07:45)
[2023-06-03] MEDS ORDERED: ONDANSETRON 4MG 2ML VIAL As Ordered ONE (07:45)
[2023-06-03] MEDS ORDERED: LIDOCAINE 2% 100MG/5ML SDV (FOR ANES.) As Ordered ONE (07:45)
[2023-06-03] MEDS ORDERED: propofoL 200 MG/20 ML VIAL As Ordered ONE (07:45)
[2023-06-03] MEDS ORDERED: KETOROLAC 60MG 2ML VIAL As Ordered ONE (07:46)
[2023-06-03] MEDS ORDERED: MIDAZOLAM INJ 2MG/2ML VIAL As Ordered ONE (08:38)
[2023-06-03] MEDS ORDERED: fentaNYL 100 MCG/2 ML INJECTION As Ordered ONE (08:38)
[2023-06-03] MEDS ORDERED: ACETAMINOPHEN 1000MG 100ML IV BAG As Ordered ONE ×2 (09:37→11:18)
[2023-06-03] MEDS ORDERED: ePHEDrine SULFATE 25 MG/5 ML(5MG/ML) SYRINGE As Ordered ONE (10:03)
[2023-06-03 12:05] VITALS: BP 131/64; TEMP 98.2; O2SAT 97
== END 2023-06-03 12:14 | disposition home or self-care (01) ==
LOC: M SDC 07:35
PROVIDERS: ATTEND Podiatrist
DX: M20.41 Other hammer toe(s) (acquired), right foot (principal); G25.81 Restless legs syndrome; K21.9 Gastro-esophageal reflux disease without esophagitis; Z98.84 Bariatric surgery status; Z79.899 Other long term (current) drug therapy; Z88.8 Allergy status to other drugs, medicaments and biological substances; Z88.2 Allergy status to sulfonamides; Z88.5 Allergy status to narcotic agent; Z91.010 Allergy to peanuts; G43.909 Migraine, unspecified, not intractable, without status migrainosus; Z86.16 Personal history of COVID-19; G47.33 Obstructive sleep apnea (adult) (pediatric)
CPT/HCPCS: 28270; 28285; 73630; 88300; J0131; J0665; J0690; J1100; J1580; J1885; J2250; J2405; J3010

== ENCOUNTER → 2023-07-04 | Outpatient (CLI) | payer MEDICARE, OTHER ==
[~2023-07-04] MED LIST changes: -GENTAMICIN SULF 80MG/2ML VIAL As Ordered ONE; -LIDOCAINE 2% MDV 20ML VIAL As Ordered ONE; -ceFAZolin SOD 2 GM in IV 1 EA IV ONE
== END ==
LOC: M RAD 10:36
PROVIDERS: ATTEND Podiatrist
DX: I87.311 Chronic venous hypertension (idiopathic) with ulcer of right lower extremity (principal); Z98.890 Other specified postprocedural states; L97.919 Non-pressure chronic ulcer of unspecified part of right lower leg with unspecified severity

== ENCOUNTER → 2023-08-15 | Outpatient (REF) | payer MEDICARE, OTHER ==
[2023-08-15 16:53] LABS: TOTAL PROTEIN,RANDOM URINE 12.3 MG/DL (0.0-14.0)
[2023-08-15 16:58] LABS: BASO % 0.6 % (0.0-1.0); CREATININE,RANDOM URINE 136.5 MG/DL; EOS # 0.1 10^3/uL (0.0-0.5); EOS % 1.1 % (0.0-3.0); HEMATOCRIT 40.9 % (36.0-47.0); LYMPH # 1.3 10^3/uL (1.5-5.0); LYMPH % 24.2 % (24.0-44.0); MEAN CORPUSCULAR HEMOGLOBIN 32.6 pg (27.0-33.0); MEAN CORPUSCULAR HGB CONC 34.2 g/dl (32.0-36.5); MEAN CORPUSCULAR VOLUME 95.3 fl (80.0-96.0); MONO # 0.5 10^3/uL (0.0-0.8); NEUTROPHILS # 3.5 10^3/uL (1.5-8.5); NEUTROPHILS % 64.9 % (36.0-66.0); PLATELET COUNT, AUTOMATED 270 10^3/uL (150-450); RED BLOOD COUNT 4.29 10^6/uL (4.00-5.40); WHITE BLOOD COUNT 5.3 10^3/uL (4.0-10.0)
[2023-08-15 17:05] LABS: ERYTHROCYTE SEDIMENTATION RATE 17 mm/hr (0-30)
[2023-08-15 17:17] LABS: APPEARANCE, URINE HAZY (CLEAR); BACTERIA, URINE AUTO NEGATIVE (NEGATIVE); BILIRUBIN, URINE AUTO NEGATIVE (NEGATIVE); BLOOD, URINE BLOOD NEGATIVE (NEGATIVE); COLOR, URINE YELLOW (YELLOW); GLUCOSE, URINE (UA) AUTO NEGATIVE (NEGATIVE); KETONE, URINE AUTO TRACE mg/dL (NEGATIVE); LEUKOCYTE ESTERASE, URINE AUTO 1+ (NEGATIVE); MUCUS, URINE SMALL (NEGATIVE); NITRITE, URINE AUTO NEGATIVE (NEGATIVE); PROTEIN, URINE AUTO NEGATIVE (NEGATIVE); RBC, URINE AUTO 1 /HPF (0-3); SPECIFIC GRAVITY URINE AUTO 1.023 (1.002-1.035); SQUAMOUS EPITHELIAL CELL UR AU 4 /HPF (0-6); WBC, URINE AUTO 5 /HPF (0-3)
[2023-08-15 17:19] LABS: C REACTIVE PROTEIN QUANTITATIV < 0.40 MG/DL (<1.0); COMPLEMENT C3 141.2 MG/DL (90.0-170.0)
[2023-08-15 17:20] LABS: ALBUMIN 3.9 G/DL (3.2-5.2); ALKALINE PHOSPHATASE 135 U/L (46-116); ALT/SGPT 25 U/L (7.0-40); AST/SGOT 25 U/L (<34); BILIRUBIN,DIRECT 0.1 MG/DL (<0.4); BILIRUBIN,TOTAL 0.4 MG/DL (0.3-1.2); BLOOD UREA NITROGEN 22 MG/DL (9-23); CALCIUM LEVEL 9.5 MG/DL (8.3-10.6); CARBON DIOXIDE LEVEL 26 MMOL/L (20-31); CHLORIDE LEVEL 106 MMOL/L (98-107); CREATININE FOR GFR 0.81 MG/DL (0.55-1.30); GLOMERULAR FILTRATION RATE > 60.0 (>39); GLUCOSE, FASTING 77 MG/DL (74-106); POTASSIUM SERUM 4.1 MMOL/L (3.5-5.1); SODIUM LEVEL 141 MMOL/L (136-145); TOTAL 25(OH) VITAMIN D 26.2 NG/ML (20.0-100.0); TOTAL PROTEIN 6.7 G/DL (5.7-8.2)
== END ==
LOC: M SFHCRHEU 13:56
PROVIDERS: ATTEND Internal Medicine
DX: R76.8 Other specified abnormal immunological findings in serum (principal); M06.4 Inflammatory polyarthropathy; Z79.899 Other long term (current) drug therapy; M35.9 Systemic involvement of connective tissue, unspecified; M79.642 Pain in left hand; M79.641 Pain in right hand

== ENCOUNTER → 2023-11-02 | Outpatient (REF) | payer MEDICARE, OTHER ==
[2023-11-02 17:32] LABS: APPEARANCE, URINE TURBID (CLEAR); BACTERIA, URINE AUTO NEGATIVE (NEGATIVE); BILIRUBIN, URINE AUTO NEGATIVE (NEGATIVE); BLOOD, URINE BLOOD 3+ (NEGATIVE); COLOR, URINE YELLOW (YELLOW); GLUCOSE, URINE (UA) AUTO NEGATIVE (NEGATIVE); KETONE, URINE AUTO TRACE mg/dL (NEGATIVE); LEUKOCYTE ESTERASE, URINE AUTO 3+ (NEGATIVE); NITRITE, URINE AUTO NEGATIVE (NEGATIVE); PROTEIN, URINE AUTO 2+ mg/dL (NEGATIVE); RBC, URINE AUTO TNTC /HPF (0-3); SPECIFIC GRAVITY URINE AUTO 1.021 (1.002-1.035); SQUAMOUS EPITHELIAL CELL UR AU 4 /HPF (0-6); UROBILINOGEN, URINE AUTO 0.2 mg/dL (0.0-2.0); WBC, URINE AUTO TNTC /HPF (0-3)
== END ==
LOC: M SMT 17:01
PROVIDERS: ATTEND Nurse Practitioner Family
DX: R30.0 Dysuria (principal)

== ENCOUNTER → 2024-02-29 | Outpatient (REF) | payer MEDICARE, OTHER ==
[~2024-02-29] MED LIST changes: -POTA10CA60 PO; +POTA10CA70 PO
[2024-02-29 14:22] LABS: BASO % 0.7 % (0.0-1.0); EOS # 0.1 10^3/uL (0.0-0.5); EOS % 2.1 % (0.0-3.0); HEMATOCRIT 43.1 % (36.0-47.0); LYMPH # 1.2 10^3/uL (1.5-5.0); LYMPH % 21.5 % (24.0-44.0); MEAN CORPUSCULAR HEMOGLOBIN 30.8 pg (27.0-33.0); MEAN CORPUSCULAR HGB CONC 32.5 g/dl (32.0-36.5); MEAN CORPUSCULAR VOLUME 94.9 fl (80.0-96.0); MONO # 0.5 10^3/uL (0.0-0.8); NEUTROPHILS # 3.8 10^3/uL (1.5-8.5); NEUTROPHILS % 67.5 % (36.0-66.0); PLATELET COUNT, AUTOMATED 295 10^3/uL (150-450); RED BLOOD COUNT 4.54 10^6/uL (4.00-5.40); WHITE BLOOD COUNT 5.6 10^3/uL (4.0-10.0)
[2024-02-29 14:28] LABS: ERYTHROCYTE SEDIMENTATION RATE 20 mm/hr (0-30)
[2024-02-29 14:29] LABS: C REACTIVE PROTEIN QUANTITATIV < 0.40 MG/DL (<1.0)
[2024-02-29 14:30] LABS: ALBUMIN 3.9 G/DL (3.2-5.2); ALKALINE PHOSPHATASE 118 U/L (46-116); ALT/SGPT 33 U/L (7.0-40); AST/SGOT 28 U/L (<34); BILIRUBIN,DIRECT 0.2 MG/DL (<0.4); BILIRUBIN,TOTAL 0.4 MG/DL (0.3-1.2); BLOOD UREA NITROGEN 19 MG/DL (9-23); CALCIUM LEVEL 9.2 MG/DL (8.3-10.6); CARBON DIOXIDE LEVEL 26 MMOL/L (20-31); CHLORIDE LEVEL 103 MMOL/L (98-107); COMPLEMENT C3 139.4 MG/DL (90.0-170.0); COMPLEMENT C4 33.1 MG/DL (12-36); CREATININE FOR GFR 0.95 MG/DL (0.55-1.30); GLOMERULAR FILTRATION RATE > 60.0 (>39); GLUCOSE, FASTING 83 MG/DL (74-106); POTASSIUM SERUM 4.3 MMOL/L (3.5-5.1); SODIUM LEVEL 135 MMOL/L (136-145); TOTAL PROTEIN 6.6 G/DL (5.7-8.2)
[2024-02-29 14:38] LABS: TOTAL PROTEIN,RANDOM URINE 8.9 MG/DL (0.0-14.0)
[2024-02-29 14:42] LABS: CREATININE,RANDOM URINE 77.3 MG/DL
[2024-02-29 14:46] LABS: APPEARANCE, URINE HAZY (CLEAR); BACTERIA, URINE AUTO 1+ (NEGATIVE); BILIRUBIN, URINE AUTO NEGATIVE (NEGATIVE); BLOOD, URINE BLOOD NEGATIVE (NEGATIVE); COLOR, URINE YELLOW (YELLOW); GLUCOSE, URINE (UA) AUTO 3+ mg/dL (NEGATIVE); KETONE, URINE AUTO NEGATIVE (NEGATIVE); LEUKOCYTE ESTERASE, URINE AUTO 3+ (NEGATIVE); MUCUS, URINE SMALL (NEGATIVE); NITRITE, URINE AUTO POSITIVE (NEGATIVE); PROTEIN, URINE AUTO NEGATIVE (NEGATIVE); RBC, URINE AUTO 4 /HPF (0-3); SPECIFIC GRAVITY URINE AUTO 1.016 (1.002-1.035); SQUAMOUS EPITHELIAL CELL UR AU 8 /HPF (0-6); TRANSITIONAL EPITHELIAL AUTO 1 /HPF; UROBILINOGEN, URINE AUTO 0.2 mg/dL (0.0-2.0); WBC, URINE AUTO 31 /HPF (0-3)
== END ==
LOC: M SFHCRHEU 09:49
PROVIDERS: ATTEND Internal Medicine
DX: R76.8 Other specified abnormal immunological findings in serum (principal); M06.4 Inflammatory polyarthropathy

== ENCOUNTER → 2024-03-13 | Outpatient (REF) | payer MEDICARE, OTHER ==
[2024-03-13 18:20] LABS: APPEARANCE, URINE CLOUDY (CLEAR); BACTERIA, URINE AUTO 3+ (NEGATIVE); BILIRUBIN, URINE AUTO NEGATIVE (NEGATIVE); BLOOD, URINE BLOOD NEGATIVE (NEGATIVE); COLOR, URINE YELLOW (YELLOW); GLUCOSE, URINE (UA) AUTO 3+ mg/dL (NEGATIVE); KETONE, URINE AUTO NEGATIVE (NEGATIVE); LEUKOCYTE ESTERASE, URINE AUTO 3+ (NEGATIVE); NITRITE, URINE AUTO POSITIVE (NEGATIVE); PROTEIN, URINE AUTO NEGATIVE (NEGATIVE); RBC, URINE AUTO 6 /HPF (0-3); SPECIFIC GRAVITY URINE AUTO 1.016 (1.002-1.035); SQUAMOUS EPITHELIAL CELL UR AU 5 /HPF (0-6); WBC, URINE AUTO TNTC /HPF (0-3)
== END ==
LOC: M LABSMT 12:40
PROVIDERS: ATTEND Urology
DX: Z87.440 Personal history of urinary (tract) infections (principal); Z79.899 Other long term (current) drug therapy

== ENCOUNTER → 2024-06-12 | Outpatient (REF) | payer MEDICARE, OTHER ==
[~2024-06-12] MED LIST changes: -CYCL5TAB PO; +CYCL5TAB4 PO
[2024-06-12 13:24] LABS: APPEARANCE, URINE CLEAR (CLEAR); BACTERIA, URINE AUTO 1+ (NEGATIVE); BILIRUBIN, URINE AUTO NEGATIVE (NEGATIVE); BLOOD, URINE BLOOD NEGATIVE (NEGATIVE); COLOR, URINE STRAW (YELLOW); GLUCOSE, URINE (UA) AUTO 3+ mg/dL (NEGATIVE); KETONE, URINE AUTO NEGATIVE (NEGATIVE); LEUKOCYTE ESTERASE, URINE AUTO 1+ (NEGATIVE); NITRITE, URINE AUTO NEGATIVE (NEGATIVE); PROTEIN, URINE AUTO NEGATIVE (NEGATIVE); RBC, URINE AUTO 0 /HPF (0-3); SPECIFIC GRAVITY URINE AUTO 1.003 (1.002-1.035); SQUAMOUS EPITHELIAL CELL UR AU 1 /HPF (0-6); UROBILINOGEN, URINE AUTO 0.2 mg/dL (0.0-2.0); WBC, URINE AUTO 7 /HPF (0-3)
== END ==
LOC: M SMT 12:39
PROVIDERS: ATTEND Urology
DX: Z87.440 Personal history of urinary (tract) infections (principal); Z79.899 Other long term (current) drug therapy

== ENCOUNTER 2024-07-23 16:17 | Inpatient (IN) | payer MEDICARE, OTHER ==
[~2024-07-23] VITALS: Ht 162.6 cm; Wt 92.8 kg
[2024-07-23 19:01] LABS: VENOUS BASE EXCESS -0.3 (-2.0-2.0); VENOUS HCO3 25.2 MMOL/L (23.0-27.0); VENOUS O2 SATURATION 51.7 % (60.0-80.0); VENOUS PARTIAL PRESSURE CO2 43.9 mmHg (38.0-50.0); VENOUS PARTIAL PRESSURE O2 29.2 mmHg (30.0-50.0); VENOUS PH 7.376 UNITS (7.330-7.430); VENOUS STANDARD HCO3 23.2 MMOL/L; VENOUS TOTAL CO2 26.5 MMOL/L (24.0-28.0)
[2024-07-23 21:12] LABS: BASO % 0.6 % (0.0-1.0); EOS # 0.2 10^3/uL (0.0-0.5); EOS % 2.8 % (0.0-3.0); HEMATOCRIT 41.6 % (36.0-47.0); HEMOGLOBIN 13.5 g/dl (12.0-15.5); LYMPH # 1.5 10^3/uL (1.5-5.0); LYMPH % 27.1 % (24.0-44.0); MEAN CORPUSCULAR HEMOGLOBIN 29.9 pg (27.0-33.0); MEAN CORPUSCULAR HGB CONC 32.5 g/dl (32.0-36.5); MEAN CORPUSCULAR VOLUME 92.2 fl (80.0-96.0); MONO # 0.4 10^3/uL (0.0-0.8); MONO % 7.7 % (2.0-8.0); NEUTROPHILS # 3.3 10^3/uL (1.5-8.5); NEUTROPHILS % 61.4 % (36.0-66.0); PLATELET COUNT, AUTOMATED 238 10^3/uL (150-450); RED BLOOD COUNT 4.51 10^6/uL (4.00-5.40); WHITE BLOOD COUNT 5.4 10^3/uL (4.0-10.0)
[2024-07-23 21:34] LABS: THYROXINE (T4) 5.2 UG/DL (4.5-10.9)
[2024-07-23 21:35] LABS: THYROID STIMULATING HORMONE 2.332 uIU/ML (0.55-4.78)
[2024-07-23 21:38] LABS: ALKALINE PHOSPHATASE 110 U/L (35-104); ALT/SGPT 24 U/L (7.0-40); AST/SGOT 40 U/L (<34); BILIRUBIN,DIRECT < 0.1 MG/DL (<0.4); BILIRUBIN,TOTAL 0.3 MG/DL (0.3-1.2); BLOOD UREA NITROGEN 16 MG/DL (9-23); CALCIUM LEVEL 7.1 MG/DL (8.3-10.6); CARBON DIOXIDE LEVEL 25 MMOL/L (20-31); CHLORIDE LEVEL 111 MMOL/L (98-107); CK-MB VALUE MASS 3.6 NG/ML (<3.6); CPK CREATINE PHOSPHOKINASE 158 U/L (34-145); GLOMERULAR FILTRATION RATE > 60.0 (>39); GLUCOSE, FASTING 72 MG/DL (74-106); MB/CK RELATIVE INDEX 2.27 (< OR =4); POTASSIUM SERUM 4.5 MMOL/L (3.5-5.1); SODIUM LEVEL 143 MMOL/L (136-145); TOTAL PROTEIN 5.3 G/DL (5.7-8.2)
[2024-07-23] MEDS: NITROFURANTOIN (MACROBID) 100 MG CAP PO ONE (22:42)
[2024-07-23] MEDS: FUROSEMIDE 100MG/10ML VIAL IV ONE (22:42)
[2024-07-23] MEDS: POTASSIUM CHLORIDE 10MEQ SR TABLET PO ONE (22:42)
[2024-07-23] MEDS: rOPINIRole 2MG TAB PO SCH (22:43)
[2024-07-23] MEDS: GABAPENTIN 300 MG CAP PO ONE (22:43)
[2024-07-23] MEDS: SPIRONOLACTONE 50 MG TAB PO SCH (22:43)
[2024-07-23] MEDS ORDERED: GABA-1172 PO ×2 (23:02)
[2024-07-23] MEDS ORDERED: XARE2.5T PO (23:02)
[2024-07-23] MEDS ORDERED: ASPI81TA26 PO (23:02)
[2024-07-23] MEDS ORDERED: FURO80TA2 PO (23:02)
[2024-07-23] MEDS ORDERED: JARD1TAB PO (23:02)
[2024-07-23] MEDS ORDERED: NITR50CA34 PO (23:02)
[2024-07-23] MEDS ORDERED: HOME MED LIST COMPLETE! XX SCH (23:05)
[2024-07-24] MEDS ORDERED: MOM 30ML SUSPENSION UDC PO PRN (00:05)
[2024-07-24] MEDS ORDERED: DEXTROSE 50% 50ML SYRINGE IV PRN (00:05)
[2024-07-24] MEDS ORDERED: GLUCAGON INJ 1MG VIAL SC PRN (00:05)
[2024-07-24] MEDS ORDERED: GLUCOSE 4 GM CHEW PO PRN (00:05)
[2024-07-24] MEDS ORDERED: ACETAMINOPHEN 325 MG TAB PO PRN (00:05)
[2024-07-24 06:40] LABS: HEMATOCRIT 42.3 % (36.0-47.0); HEMOGLOBIN 13.8 g/dl (12.0-15.5); MEAN CORPUSCULAR HEMOGLOBIN 30.1 pg (27.0-33.0); MEAN CORPUSCULAR HGB CONC 32.6 g/dl (32.0-36.5); MEAN CORPUSCULAR VOLUME 92.4 fl (80.0-96.0); PLATELET COUNT, AUTOMATED 230 10^3/uL (150-450); RED BLOOD COUNT 4.58 10^6/uL (4.00-5.40); WHITE BLOOD COUNT 5.8 10^3/uL (4.0-10.0)
[2024-07-24 06:59] LABS: ALBUMIN 3.7 G/DL (3.2-5.2); ALKALINE PHOSPHATASE 147 U/L (35-104); ALT/SGPT 25 U/L (7.0-40); AST/SGOT 24 U/L (<34); BILIRUBIN,TOTAL 0.6 MG/DL (0.3-1.2); BLOOD UREA NITROGEN 18 MG/DL (9-23); CALCIUM LEVEL 9.6 MG/DL (8.3-10.6); CARBON DIOXIDE LEVEL 27 MMOL/L (20-31); CHLORIDE LEVEL 104 MMOL/L (98-107); CREATININE FOR GFR 0.88 MG/DL (0.55-1.30); GLOMERULAR FILTRATION RATE > 60.0 (>39); GLUCOSE, FASTING 92 MG/DL (74-106); POTASSIUM SERUM 3.8 MMOL/L (3.5-5.1); SODIUM LEVEL 141 MMOL/L (136-145); TOTAL PROTEIN 6.4 G/DL (5.7-8.2)
[2024-07-24] MEDS: INSULIN LISPRO (NovoLOG) PER UNIT SC SCH ×2 (07:30→20:42)
[2024-07-24] MEDS ORDERED: RIVAROXABAN 10MG TAB (XARELTO) PO SCH (09:00)
[2024-07-24] MEDS ORDERED: RIVAROXABAN 2.5 MG PO SCH (09:00)
[2024-07-24] MEDS: UNRESOLVED PATIENT OWN MED ORDER XX SCH (09:00)
[2024-07-24] MEDS: SPIRONOLACTONE 50 MG TAB PO SCH (09:22)
[2024-07-24] MEDS: rOPINIRole 2MG TAB PO SCH (09:23)
[2024-07-24] MEDS: ASPIRIN 81MG ENTERIC TABLET PO SCH (09:23)
[2024-07-24] MEDS: PANTOPRAZOLE 40MG VIAL IV SCH (09:23)
[2024-07-24] MEDS: GABAPENTIN 300 MG CAP PO SCH ×2 (09:23→20:48)
[2024-07-24] MEDS: POTASSIUM CHLORIDE 10MEQ SR TABLET PO SCH (09:23)
[2024-07-24] MEDS: FUROSEMIDE 100MG/10ML VIAL IV SCH (09:24)
[2024-07-24 12:50] VITALS: BP 132/68; TEMP 97.7; O2SAT 96
[2024-07-24 13:00] LABS: MAGNESIUM LEVEL 2.2 MG/DL (1.8-2.4)
[2024-07-24 13:01] LABS: C REACTIVE PROTEIN QUANTITATIV < 0.50 MG/DL (<1.0)
[2024-07-24] MEDS: ceFAZolin SOD 2 GM in IV 1 EA IV SCH (13:24)
[2024-07-24] MEDS ORDERED: ROPINIROLE 4 MG PO SCH (16:00)
[2024-07-24 17:57] VITALS: BP 122/70
[2024-07-24 20:00] VITALS: BP 120/70; TEMP 97.3; O2SAT 96
[2024-07-24] MEDS ORDERED: NITROFURANTOIN (MACROBID) 100 MG CAP PO SCH (21:00)
[2024-07-24] MEDS ORDERED: NITROFURANTOIN MACROCRYSTAL 50 MG PO SCH (21:00)
[2024-07-25 04:38] VITALS: BP 119/72; TEMP 97.7; O2SAT 93
[2024-07-25] MEDS ORDERED: KETOROLAC 30 MG/ML 1ML VIAL IV PRN (05:55)
[2024-07-25 06:07] LABS: BASO % 0.5 % (0.0-1.0); EOS # 0.2 10^3/uL (0.0-0.5); EOS % 2.6 % (0.0-3.0); HEMATOCRIT 40.9 % (36.0-47.0); HEMOGLOBIN 13.5 g/dl (12.0-15.5); LYMPH # 1.5 10^3/uL (1.5-5.0); LYMPH % 26.6 % (24.0-44.0); MEAN CORPUSCULAR HEMOGLOBIN 29.9 pg (27.0-33.0); MEAN CORPUSCULAR VOLUME 90.7 fl (80.0-96.0); MONO # 0.6 10^3/uL (0.0-0.8); MONO % 9.7 % (2.0-8.0); NEUTROPHILS # 3.5 10^3/uL (1.5-8.5); NEUTROPHILS % 60.4 % (36.0-66.0); PLATELET COUNT, AUTOMATED 250 10^3/uL (150-450); RED BLOOD COUNT 4.51 10^6/uL (4.00-5.40); WHITE BLOOD COUNT 5.8 10^3/uL (4.0-10.0)
[2024-07-25 06:28] LABS: BLOOD UREA NITROGEN 26 MG/DL (9-23); CALCIUM LEVEL 9.1 MG/DL (8.3-10.6); CARBON DIOXIDE LEVEL 26 MMOL/L (20-31); CHLORIDE LEVEL 101 MMOL/L (98-107); CREATININE FOR GFR 0.94 MG/DL (0.55-1.30); GLOMERULAR FILTRATION RATE > 60.0 (>39); GLUCOSE, FASTING 107 MG/DL (74-106); MAGNESIUM LEVEL 2.2 MG/DL (1.8-2.4); POTASSIUM SERUM 3.8 MMOL/L (3.5-5.1); SODIUM LEVEL 136 MMOL/L (136-145)
[2024-07-25] MEDS: KETOROLAC 30 MG/ML 1ML VIAL IV PRN (06:30)
[2024-07-25 09:15] VITALS: BP 112/50
[2024-07-25 12:00] VITALS: BP 117/72; TEMP 98.2; O2SAT 92
[2024-07-25 13:14] LABS: URIC ACID 6.7 MG/DL (3.1-7.8)
[2024-07-25 20:00] VITALS: BP 134/83; TEMP 97.9; O2SAT 97
[2024-07-26 04:00] VITALS: BP 107/65; TEMP 97.7; O2SAT 97
[2024-07-26 06:23] LABS: BLOOD UREA NITROGEN 26 MG/DL (9-23); CALCIUM LEVEL 9.3 MG/DL (8.3-10.6); CARBON DIOXIDE LEVEL 24 MMOL/L (20-31); CHLORIDE LEVEL 103 MMOL/L (98-107); CREATININE FOR GFR 0.87 MG/DL (0.55-1.30); GLOMERULAR FILTRATION RATE > 60.0 (>39); GLUCOSE, FASTING 95 MG/DL (74-106); MAGNESIUM LEVEL 2.1 MG/DL (1.8-2.4); POTASSIUM SERUM 3.8 MMOL/L (3.5-5.1); SODIUM LEVEL 139 MMOL/L (136-145)
[2024-07-26] MEDS: FUROSEMIDE 80 MG TAB PO SCH (08:57)
[2024-07-26] MEDS ORDERED: CEPH500C PO ×2 (11:05→11:14)
== END 2024-07-26 12:47 | disposition home or self-care (01) | DRG 300 ==
LOC: M ED 16:17 → M ED INP 07-24 00:01 → M MSPAV 07-24 12:48
PROVIDERS: ADMIT Student in an Organized Health Care Education/Training Program; ATTEND Internal Medicine
PROC: B246ZZZ Ultrasonography of Right and Left Heart (ICD-10-PCS; principal; 2024-07-24)
DX: I87.2 Venous insufficiency (chronic) (peripheral) (principal); L03.115 Cellulitis of right lower limb; Z66 Do not resuscitate; N18.2 Chronic kidney disease, stage 2 (mild); E11.22 Type 2 diabetes mellitus with diabetic chronic kidney disease; G25.81 Restless legs syndrome; K21.9 Gastro-esophageal reflux disease without esophagitis; E11.42 Type 2 diabetes mellitus with diabetic polyneuropathy; M32.9 Systemic lupus erythematosus, unspecified; M19.90 Unspecified osteoarthritis, unspecified site; G47.33 Obstructive sleep apnea (adult) (pediatric); Z98.84 Bariatric surgery status; Z90.79 Acquired absence of other genital organ(s); Z90.49 Acquired absence of other specified parts of digestive tract; Z98.49 Cataract extraction status, unspecified eye; Z79.82 Long term (current) use of aspirin; Z79.899 Other long term (current) drug therapy; Z88.2 Allergy status to sulfonamides; Z88.5 Allergy status to narcotic agent; Z91.010 Allergy to peanuts; Z91.018 Allergy to other foods; Z86.73 Personal history of transient ischemic attack (TIA), and cerebral infarction without residual deficits